=== PATIENT | male | born 1980 | race Caucasian/White ===

== ENCOUNTER → 2020-11-25 11:36 | Outpatient (CLI) | payer OTHER, SELFPAY ==
[2020-11-25 11:44] LABS: Microscopic, Urine URINE MICROSCOPIC (MICROSCOPIC)
[2020-11-25 12:02] LABS: Appearance,Urine CLEAR (Clear); Bilirubin,Urine Negative (Negative); Blood, Urine Negative (Negative); Color,Urine YELLOW (Yellow); Glucose,Urine (UA) Negative (Negative); Ketones,Urine Negative (Negative); Leukocyte Esterase,Urine Negative (Negative); Nitrate,Urine Negative (Negative); Protein,Urine TRACE (Negative)
[2020-11-25 12:14] LABS: Hemoglobin A1C 5.1 % (4.0-6.0)
[2020-11-25 12:16] LABS: Basophils # 0.1 K/mm3 (0-0.2); Basophils % 0.7 % (0.1-2.0); Eosinophils # 0.6 K/mm3 (0.0-0.4); Eosinophils % 4.5 % (0.1-12.0); Hematocrit 48.9 % (42.0-52.0); Hemoglobin 15.9 g/dL (14.1-18.0); Lymphocytes # 4.5 K/mm3 (0.7-4.5); Lymphocytes % 36.4 % (10-50); Mean Corpuscular HGB Conc 32.6 g/dL (31.8-35.4); Mean Corpuscular Hemoglobin 33.2 pg (27.0-31.2); Mean Corpuscular Volume 101.7 fl (80-94); Monocytes # 0.9 K/mm3 (0.1-1.0); Monocytes % 7.3 % (1.7-9.3); Neutrophils # 6.3 K/mm3 (1.8-7.8); Neutrophils % 51.1 % (37.0-80.0); Platelet Count 289 K/mm3 (142-424); Red Cell Distribution Width 13.3 % (11.5-17.5); White Blood Count 12.3 K/mm3 (4.8-10.8)
[2020-11-25 12:50] LABS: Alanine Aminotransferase 56 U/L (12-78); Albumin Level 4.4 g/dl (3.5-5.0); Albumin/Globulin Ratio 1.2 (1.1-1.8); Alkaline Phosphatase 132 U/L (38-126); Anion Gap 14.5 mEq/L (5-15); Aspartate Amino Transferase 41 U/L (17-59); Bilirubin,Total 0.5 mg/dl (0.2-1.3); Blood Urea Nitrogen 6 mg/dl (9-20); Calcium 9.4 mg/dl (8.4-10.2); Carbon Dioxide 31 mmol/L (22.0-30.0); Chloride 103 mmol/L (98-107); Cholesterol 190 mg/dl (140-200); Estimated Glomerular Filt Rate 124 ml/min (>60); GFR (African American) 150 ML/MIN (>60); Globulin 3.7 g/dL (1.3-3.2); Glucose 95 mg/dl (74-100); HDL Cholesterol 38 mg/dl (40-60); Potassium 4.5 mmoL/L (3.5-5.1); Sodium 144 mmol/L (136-145); Total Protein,Serum 8.1 g/dl (6.3-8.2); Triglycerides 100 mg/dl (30-150); VLDL Cholesterol 20 mg/dL (0-40)
[2020-11-25 13:03] LABS: Direct LDL Cholesterol 121.92 mg/dL (100-129)
[2020-11-25 13:09] LABS: Free Thyroxine Index 2.3 ug/dL (5.93-13.13); T4 (Thyroxine) 9.1 ug/dl (5.53-11.0); Triiodothryronine (T3) Uptake 25 % (23.5-40.5)
[2020-11-25 13:23] LABS: Thyroid Stimulating Hormone 5.27 uIU/mL (0.465-4.68)
[2020-11-26 05:15] LABS: HIV Screen 4th Generation wRfx Non Reactive (Non Reactive)
[2020-11-26 06:46] LABS: Hep A Ab, IgM Negative (Negative); Hepatitis B Core Antibody IgM Negative (Negative); Hepatitis B Surface Antigen Negative (Negative); Hepatitis C Antibody >11.0 s/co ratio (0.0-0.9)
[2020-11-27 00:07] LABS: Neisseria gonorrhoeae, NAA Negative (Negative)
== END ==
PROVIDERS: Visit Provider Nurse Practitioner Family
DX: R03.0 Elevated blood-pressure reading, without diagnosis of hypertension (principal); R53.83 Other fatigue; R36.9 Urethral discharge, unspecified; N52.9 Male erectile dysfunction, unspecified; Z86.19 Personal history of other infectious and parasitic diseases
CPT/HCPCS: 36415; 80053; 80061; 80074; 81001; 83036; 84436; 84443; 84479; 85025; 86703; 87491; 87591; G0103; G0432

== ENCOUNTER 2020-12-20 15:15 | Emergency (ER) | payer OTHER, SELFPAY ==
[2020-12-20 15:15] VITALS: BP 155/110; PULSE 69; RESP 19; TEMP 37.1; O2SAT 98; BMI 27.3
--- NOTE | 2020-12-20 15:15 | ECG_ITS ---
APPROVED REPORT Exam: Resting ECG HR:68 bpm ECG Measurements Heart Rate [address] 168 P 53 QRSd 82 QRS 53 QT 392 T 33 QTc 416 Conclusion Normal sinus rhythm Possible Left atrial enlargement Borderline ECG Electronically signed by : Randolph García MD 12/21/2020 21:20:58
--- NOTE | 2020-12-20 15:26 | XR_ITS ---
PROCEDURE INFORMATION: Exam: XR Chest Exam date and time: 12/20/2020 3:26 PM Age: 40 years old Clinical indication: Pain; Angina pectoris; Additional info: Cp with movement and breathing TECHNIQUE: Imaging protocol: XR of the chest. Views: 2 views. COMPARISON: No relevant prior studies available. FINDINGS: Lungs: Unremarkable. No consolidation. Pleural spaces: Unremarkable. No pleural effusion. No pneumothorax. Heart/Mediastinum: Unremarkable. No cardiomegaly. Bones/joints: Unremarkable. IMPRESSION: No acute findings.
--- NOTE | 2020-12-20 15:46 | [facility].EDCP ---
ED Disposition Clinical Impression: Chest pain Qualifiers: Chest pain type: unspecified Qualified Code(s): R07.9 - Chest pain, unspecified Disposition: Left Against Medical Advice Condition on Discharge: Fair Instructions: DI for Atypical Chest Pain Referrals: Provider,Referral, [Primary Care Provider] - - Critical Care Critical Care Time: No Attestation: On 12/20/20, the high probability of a clinically significant, sudden or life threatening deterioration of the following system(s) required my full and direct attention, intervention and personal management. The time I documented below is in addition to time spent performing reported procedures but includes the following listed in this critical care notation. Medical Decision Making - Medical Records Medical records reviewed: Yes: I reviewed the patient's medical records. - [place] Inquiry Pt receiving controlled substance: No Vital Signs: 12/20/20 15:15 Temperature 98.7 F Temperature Source Oral Pulse Rate [Right Radial] 69 Respiratory Rate 19 Blood Pressure [Right Arm] 155/110 H Blood Pressure Mean [Right Arm] 125 Blood Pressure Source [Right Arm] Automatic Cuff Blood Pressure Position [Right Arm] Sitting 02 Sat by Pulse Oximetry 98 Oxygen Delivery Method Room Air - Lab Data Lab Results 12/20/20 15:40: WBC 7.4, RBC 4.46 L, Hgb 14.6, Hct 43.6, MCV 97.7 H, MCH 32.6 H, MCHC 33.4, RDW 13.6, Plt Count 294, MPV 8.5, Neut % (Auto) 37.6, Lymph % (Auto) 47.7, Stephenson % (Auto) 6.4, Eos % (Auto) 7.0, Baso % (Auto) 1.3, Neut # (Auto) 2.8, Lymph # (Auto) 3.5, Stephenson # (Auto) 0.5, Eos # (Auto) 0.5 H, Baso # (Auto) 0.1 12/20/20 15:40: Sodium 141, Potassium 3.5, Chloride 105, Carbon Dioxide 29, Anion Gap 10.5, BUN 8 L, Creatinine 0.60 L, Estimated Creat Clear 232, Estimated GFR 148, Est GFR ( Amer) 179, Glucose 101 H, Calcium 8.8, Troponin I < 0.01 Result diagrams: 12/20/20 15:40 12/20/20 15:40 Orders (Tests/Meds): ED MEDICATIONS Discontinued Medications Generic Name Dose Route Start Last Admin Trade Name Felicia PRN Reason Stop Dose Admin Aspirin 324 mg 12/20/20 15:29 12/20/20 15:33 Aspirin 81mg Chewable Tablet PO 12/20/20 15:30 324 mg ONCE ONE Administration ORDERS Category Date Time Status XR chest 2V Stat Exams 12/20/20 15:26 Taken Troponin I Q3H Lab 12/20/20 18:30 Ordered Troponin I Q3H Lab 12/20/20 21:30 Ordered - Radiology Data #1 Image(s): Chest Image Reviewed: Yes I reviewed the patient's radiology results, Yes I reviewed the patient's radiology image, Yes I have reviewed radiologist's interpretation Preliminary Findings: Normal/NAD - ECG Data Tracing #1 I reviewed this ECG and interpreted as documented below: No ventricular rate of 68 bpm, WI interval 160 ms, normal QTC. Sinus rhythm with some left atrial enlargement. Nonspecific changes. ECG initial impression date: 12/20/20 ECG initial impression time: 15:15 - Reevaluation(s) Time: 17:03 Reevaluation #1: Upon going to reevaluate the patient, he states that he is not waiting any longer. For no apparent reason he cannot stay to complete his work-up. Patient removed his IV by himself and left and on the ground. Patient walked around the emergency department without completing medical care. - MARY Score for Non-Stemi Age of Patient: 40-49 years old Heart Rate: 50-69 bpm Systolic Blood Pressure: 140-159 mmHg Serum Creatinine: <0.40 mg/dl CHF [place] Class: I-No CHF Other Risk Factors: None Non-Stemi Risk Score: 53 Risk Stratification: 1-108 = Low Risk Medical Decision Narrative: 40-year-old male presented to the emergency department with some subacute chest discomfort. Is reproducible on examination. More consistent with chest wall discomfort. Work-up initiated. Chest Pain HPI - General Chief Complaint: Chest Pain Stated Complaint: CP Time Seen by Provider: 12/20/20 15:20 Mode of Arrival: Ambulatory Limitations: No Limitat
[2020-12-20 15:51] LABS: Basophils # 0.1 K/mm3 (0-0.2); Basophils % 1.3 % (0.1-2.0); Eosinophils # 0.5 K/mm3 (0.0-0.4); Hematocrit 43.6 % (42.0-52.0); Hemoglobin 14.6 g/dL (14.1-18.0); Lymphocytes # 3.5 K/mm3 (0.7-4.5); Lymphocytes % 47.7 % (10-50); Mean Corpuscular HGB Conc 33.4 g/dL (31.8-35.4); Mean Corpuscular Hemoglobin 32.6 pg (27.0-31.2); Mean Corpuscular Volume 97.7 fl (80-94); Mean Platelet Volume 8.5 fl (7.4-10.4); Monocytes # 0.5 K/mm3 (0.1-1.0); Monocytes % 6.4 % (1.7-9.3); Neutrophils # 2.8 K/mm3 (1.8-7.8); Neutrophils % 37.6 % (37.0-80.0); Platelet Count 294 K/mm3 (142-424); Red Blood Count 4.46 M/mm3 (4.60-6.20); Red Cell Distribution Width 13.6 % (11.5-17.5); White Blood Count 7.4 K/mm3 (4.8-10.8)
[2020-12-20 16:00] LABS: Anion Gap 10.5 mEq/L (5-15); Blood Urea Nitrogen 8 mg/dl (9-20); Calcium 8.8 mg/dl (8.4-10.2); Carbon Dioxide 29 mmol/L (22.0-30.0); Chloride 105 mmol/L (98-107); Creatinine Clearance Estimated 232 mL/min (50-200); Estimated Glomerular Filt Rate 148 ml/min (>60); GFR (African American) 179 ML/MIN (>60); Glucose 101 mg/dl (74-100); Potassium 3.5 mmoL/L (3.5-5.1); Sodium 141 mmol/L (136-145)
[2020-12-20 16:15] LABS: Troponin I < 0.01 ng/ml (0.00-0.034)
--- NOTE | 2020-12-20 17:04 | PC.NURSE ---
pt was very up set wanted to leave and walked out curssing
--- NOTE | 2020-12-20 17:27 | PC.NURSE ---
Pt removed his own IV and left the ED by walking out of the ambulance bay. Pt witnessed by staff. Pt refused to sign an AMA form.
[2020-12-20 17:33] VITALS: BP 0/0; PULSE 0; RESP 0; TEMP -17.7; TEMP 0; O2SAT 0
== END 2020-12-20 17:34 | disposition left against medical advice (07) ==
PROVIDERS: Emergency Provider Emergency Medicine
DX: R07.9 Chest pain, unspecified (principal)
CPT/HCPCS: 71046; 80048; 84484; 85025; 93005; 99282